=== PATIENT | male | born 1975 | race Two or more races ===

== ENCOUNTER 2025-01-01 11:40 | Day surgery (SDC) | payer MEDICAID, SELFPAY ==
--- NOTE | 2024-12-31 08:55 | ESHP_ITS ---
RE: MEL BONILLA : 1975 DATE OF ADMISSION: 01/01/2025 DATE OF SURGERY: 01/01/2025 HISTORY OF PRESENT ILLNESS: The patient is a 49-year-old male who was seen because of positive FOBT. He was therefore advised to have colonoscopy. The patient denies any history of christin rectal bleeding or any history of colon cancer in the family. The patient has been in good health and denies any major medical problem. 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 PAST MEDICAL HISTORY: Hypertension, type 2 diabetes mellitus type, chronic kidney disease, right upper lobe mass. PAST SURGERY: Left elbow on 12/28/2009. PHYSICAL EXAMINATION: General: Well-nourished, slightly obese male who is weighing about pounds. He is 6 feet tall weighing pounds with BMI of 34.8. Vital Signs: Temperature 98.6, pulse 84, BP 150/85. HEENT: Head is normal. Ear, nose, and throat normal. Neck: Normal. Chest: Revealed good breath sounds. Heart: Sinus rhythm. Abdomen: Unremarkable. IMPRESSION: 1. Hemoccult blood. 2. Obesity. 3. Essential hypertension. 4. Anxiety disorders. COURSE OF ACTION: I advised the patient undergo colonoscopy. The procedure was explained to him using the translator/interpreter and he is agreeable. DT: 21:29:41 TT: 22:08:00 Ref: [id number] - TID: [id number]
[2024-12-31 10:58] VITALS: BMI 34.2
[2025-01-01] VITALS (10 sets, daily range): BP systolic 129–204; BP diastolic 76–106; PULSE 69–78; RESP 16–20; TEMP 36.7–37.1; O2SAT 96–99; BMI 33.6
[2025-01-01] MEDS: RINGERS LACTATED 1000 ML 1,000 ML 100 ML IV (13:12)
[2025-01-01] MEDS: MIDAZOLAM INJ 1 MG/ML VIAL 2 ML (ASD USE ONLY) 2 MG IV (13:14)
[2025-01-01] MEDS: SIMETHICONE 40 MG/0.6 ML ORAL SYRINGE PO (13:15)
[2025-01-01] MEDS: fentaNYL CIT INJ 50 mCg/ML AMP 2ML (ASD USE ONLY) IV (13:18)
[2025-01-01] MEDS: DiphenhydrAMINE INJ 50 MG/ML VIAL 25 MG IV (13:20)
--- NOTE | 2025-01-01 13:56 | SUR.PHASEII ---
1338: Pt received for recovery. Report from Zahraa PURVIS. Pt groggy, but awake. Resp even, unlabored. VS stable. BP elevated and is within pre-procedure baseline. Report from nurse stated he stresses and becomes very anxious for precedures. Other VS stable. Denies pain.
--- NOTE | 2025-01-01 14:38 | SUR.PHASEII ---
1405: Pt more awake, alert. BP coming down. VS stable. Denies pain. Sitting up tolerating po fluids with no difficulty swallowing and no n/v. 1417: Pt fully awake, oriented x3. Pt assisted to restroom. Ambulation steady. Pt and son stated understanding of discharge instructions. Pt discharged from [facility] in stable condition.
== END 2025-01-01 14:17 | disposition home or self-care (01) ==
PROVIDERS: PCP Nurse Practitioner Family; Referring Provider Surgery; Visit Provider Surgery
PROC: 0DBE8ZX Excision of Large Intestine, Via Natural or Artificial Opening Endoscopic, Diagnostic (ICD-10-PCS; CPT 45380; principal; 2025-01-01 13:00)
DX: Z12.11 Encounter for screening for malignant neoplasm of colon (principal); Z68.34 Body mass index [BMI] 34.0-34.9, adult; N18.9 Chronic kidney disease, unspecified; I12.9 Hypertensive chronic kidney disease with stage 1 through stage 4 chronic kidney disease, or unspecified chronic kidney disease; F41.9 Anxiety disorder, unspecified; E66.9 Obesity, unspecified; E11.22 Type 2 diabetes mellitus with diabetic chronic kidney disease
CPT/HCPCS: 45378; A4217; J1200; J2250; J3010; J7120; A9270